=== PATIENT | female | born 1940 | race Caucasian/White ===

== ENCOUNTER 2020-08-18 09:56 | Emergency (ER) | payer MEDICARE, OTHER ==
[~2020-08-18 09:56] MED LIST: ELIQUIS 5 MG TAB5 MG PO
[2020-08-18 11:50] LABS: HEMOGLOBIN 12.9 gm/dl (12.3-15.3); RED BLOOD COUNT 4.36 M/UL (4.00-5.10); WHITE BLOOD COUNT 5.1 K/UL (4.5-11.0)
== END 2020-08-18 14:42 | disposition home or self-care (01) ==
LOC: ER1 09:56
PROVIDERS: Emergency Medicine
DX: E11.65 Type 2 diabetes mellitus with hyperglycemia (principal); I10 Essential (primary) hypertension
CPT/HCPCS: 80053; 81001; 82962; 85025; 96374; 96375; 99284; J2405

== ENCOUNTER 2020-09-15 14:59 | Inpatient (IN) | payer MEDICARE, OTHER ==
[~2020-09-15] VITALS: Ht 162.6 cm; Wt 81.6 kg
[~2020-09-15 14:59] MED LIST changes: -ASPIRIN EC81 MG PO; -CRESTOR 10 MG T10 MG PO; -ELIQUIS5 MG PO; -GLIPIZIDE5 MG PO; -GLUCOPHAGE1000 MG PO; -HYDROCHLOROTHIA25 MG PO; -HYDROCODON-ACE1 EAC1 PO; -ISOSORBIDE MONO60 MG PO; -JANUVIA50 MG PO; -LANTUS INS100 UTS/M1 SC; -LEVEMIR100 UNIT/1 SQ; -LIQUID B121000 MCG/1 IM; -LOPRESSOR 25 MG25 MG PO; -LYRICA100 MG PO; -POLYETHYLENE G500 GM PO; -QUINAPRIL HCL40 MG PO; -SYNTHROID25 MCG PO; -TYLENOL EXTRA500 MG PO; -VITAMIN D31250 MCG PO
[2020-09-15 16:05] LABS: HEMOGLOBIN 13.1 gm/dl (12.3-15.3); RED BLOOD COUNT 4.32 M/UL (4.00-5.10)
[2020-09-15 16:30] LABS: BUN/CREATININE RATIO 18 (0-10)
[2020-09-15] MEDS ORDERED: QUINAPRIL HCL40 MG PO (23:58)
[2020-09-15] MEDS ORDERED: JANUVIA50 MG PO (23:59)
[2020-09-16] MEDS ORDERED: HYDROCHLOROTHIA25 MG PO
[2020-09-16] MEDS ORDERED: SYNTHROID25 MCG PO (00:01)
[2020-09-16] MEDS ORDERED: ELIQUIS5 MG PO (00:03)
[2020-09-16] MEDS ORDERED: POLYETHYLENE G500 GM PO (00:03)
[2020-09-16] MEDS ORDERED: HYDROCODON-ACE1 EAC1 PO (00:05)
[2020-09-16] MEDS ORDERED: LOPRESSOR 25 MG25 MG PO (00:06)
[2020-09-16] MEDS ORDERED: LYRICA100 MG PO (00:07)
[2020-09-16] MEDS ORDERED: GLUCOPHAGE1000 MG PO (00:51)
[2020-09-16] MEDS ORDERED: LIQUID B121000 MCG/1 IM (00:56)
[2020-09-16] MEDS ORDERED: LEVEMIR100 UNIT/1 SQ (00:57)
[2020-09-16] MEDS ORDERED: ISOSORBIDE MONO60 MG PO (00:59)
[2020-09-16] MEDS ORDERED: GLIPIZIDE5 MG PO (01:00)
[2020-09-16 05:37] LABS: HEMOGLOBIN 12.5 gm/dl (12.3-15.3); RED BLOOD COUNT 4.17 M/UL (4.00-5.10); WHITE BLOOD COUNT 5.2 K/UL (4.5-11.0)
--- NOTE | 2020-09-16 11:41 | NUR ---
PER OK TO SEND PATIENT TO MRI WITHOUT TELEMETRY
[2020-09-16] MEDS ORDERED: VITAMIN D31250 MCG PO (12:16)
[2020-09-16] MEDS ORDERED: ASPIRIN EC81 MG PO (12:17)
[2020-09-16] MEDS ORDERED: TYLENOL EXTRA500 MG PO (12:20)
--- NOTE | 2020-09-16 14:42 | NUR ---
CALLED TO REVIEW RESULTS OF MRA
[2020-09-16] MEDS ORDERED: CRESTOR 10 MG T10 MG PO (23:58)
[2020-09-17] MEDS ORDERED: LEVEMIR100 UNIT/1 SQ (09:03)
[2020-09-17] MEDS ORDERED: LOPRESSOR 25 MG25 MG PO (09:03)
[2020-09-17] MEDS ORDERED: LANTUS INS100 UTS/M1 SC (09:03)
== END 2020-09-17 12:38 | disposition home or self-care (01) | DRG 66 ==
LOC: ER1 14:59 → PROG CARE 18:55 → CDU 18:55 → PROG CARE 09-16 06:29
PROVIDERS: Emergency Medicine; ADMIT Internal Medicine
PROC: B24BZZ4 Ultrasonography of Heart with Aorta, Transesophageal (ICD-10-PCS; principal; 2020-09-16)
DX: I63.9 Cerebral infarction, unspecified (principal); I65.22 Occlusion and stenosis of left carotid artery; I10 Essential (primary) hypertension; I25.10 Atherosclerotic heart disease of native coronary artery without angina pectoris; Z20.822 Contact with and (suspected) exposure to COVID-19; F17.210 Nicotine dependence, cigarettes, uncomplicated; E11.9 Type 2 diabetes mellitus without complications; I48.0 Paroxysmal atrial fibrillation; K59.00 Constipation, unspecified; H91.93 Unspecified hearing loss, bilateral; E11.40 Type 2 diabetes mellitus with diabetic neuropathy, unspecified; Z79.01 Long term (current) use of anticoagulants; Z79.82 Long term (current) use of aspirin; Z79.4 Long term (current) use of insulin; Z82.3 Family history of stroke; Z83.3 Family history of diabetes mellitus; Z90.49 Acquired absence of other specified parts of digestive tract; Z91.041 Radiographic dye allergy status; Z95.5 Presence of coronary angioplasty implant and graft
CPT/HCPCS: ECHO; 70544; 70551; 71045; 80053; 82550; 82553; 82962; 83036; 83735; 83874; 84484; 85025; 85027; 85610; 85730; 93005; 93306; 97162; 99285; G0378; J2405; Q9967; U0002

== ENCOUNTER → 2020-09-15 | Outpatient (CLI) | payer MEDICARE, OTHER ==
[~2020-09-15] MED LIST changes: +ASPIRIN EC81 MG PO; +CRESTOR 10 MG T10 MG PO; +ELIQUIS5 MG PO; +GLIPIZIDE5 MG PO; +GLUCOPHAGE1000 MG PO; +HYDROCHLOROTHIA25 MG PO; +HYDROCODON-ACE1 EAC1 PO; +ISOSORBIDE MONO60 MG PO; +JANUVIA50 MG PO; +LANTUS INS100 UTS/M1 SC; +LEVEMIR100 UNIT/1 SQ; +LIQUID B121000 MCG/1 IM; +LOPRESSOR 25 MG25 MG PO; +LYRICA100 MG PO; +POLYETHYLENE G500 GM PO; +QUINAPRIL HCL40 MG PO; +SYNTHROID25 MCG PO; +TYLENOL EXTRA500 MG PO; +VITAMIN D31250 MCG PO
== END ==
LOC: KOH-I 10:54
DX: H90.3 Sensorineural hearing loss, bilateral (principal); E78.5 Hyperlipidemia, unspecified; H93.13 Tinnitus, bilateral; R42 Dizziness and giddiness; R90.82 White matter disease, unspecified
CPT/HCPCS: 70551

== ENCOUNTER → 2020-12-11 | Outpatient (CLI) | payer MEDICARE, OTHER ==
[~2020-12-11] MED LIST changes: +ASPIRIN EC81 MG PO; +CRESTOR 10 MG T10 MG PO; +ELIQUIS5 MG PO; +GLIPIZIDE5 MG PO; +GLUCOPHAGE1000 MG PO; +HYDROCHLOROTHIA25 MG PO; +HYDROCODON-ACE1 EAC1 PO; +ISOSORBIDE MONO60 MG PO; +JANUVIA50 MG PO; +LANTUS INS100 UTS/M1 SC; +LEVEMIR100 UNIT/1 SQ; +LIQUID B121000 MCG/1 IM; +LOPRESSOR 25 MG25 MG PO; +LYRICA100 MG PO; +POLYETHYLENE G500 GM PO; +QUINAPRIL HCL40 MG PO; +SYNTHROID25 MCG PO; +TYLENOL EXTRA500 MG PO; +VITAMIN D31250 MCG PO
== END ==
LOC: KOH-I 11:46
DX: M25.561 Pain in right knee (principal); M17.11 Unilateral primary osteoarthritis, right knee
CPT/HCPCS: 73562

== ENCOUNTER → 2021-04-06 | Outpatient (CLI) | payer MEDICARE, OTHER | LOC: KOH-I 14:21 | DX: K59.09 Other constipation (principal); E11.40 Type 2 diabetes mellitus with diabetic neuropathy, unspecified; H91.93 Unspecified hearing loss, bilateral; M81.0 Age-related osteoporosis without current pathological fracture; I10 Essential (primary) hypertension; Z03.818 Encounter for observation for suspected exposure to other biological agents ruled out | CPT/HCPCS: 74176 ==

== ENCOUNTER → 2021-11-24 | Outpatient (CLI) | payer MEDICARE, OTHER | LOC: NM 09:47 | DX: I25.10 Atherosclerotic heart disease of native coronary artery without angina pectoris (principal); R06.02 Shortness of breath; R07.9 Chest pain, unspecified | CPT/HCPCS: 78452; 93017; A9502; J2785 ==